=== PATIENT | female | born 1980 | race Two or more races ===

== ENCOUNTER 2017-02-04 17:04 | Emergency (ER) | payer OTHER ==
[~2017-02-04] VITALS: Ht 154.9 cm; Wt 64.5 kg
[2017-02-04 17:30] LABS: HEMATOCRIT 44.2 % (34.6-47.8); HEMOGLOBIN 14.9 g/dL (11.7-16.4); WHITE BLOOD COUNT 10.2 x10^3/uL (3.4-10)
[2017-02-04] MEDS ORDERED: SODIUM CHLORIDE FLUSH 10ML SYR IVF ONE (17:30)
[2017-02-04] MEDS ORDERED: SODIUM CHLORIDE 0.9% 1,000ML IVBOLUS ONE (17:30)
[2017-02-04 17:42] LABS: BLOOD UREA NITROGEN 11 mg/dL (7-18)
[2017-02-04 22:26] VITALS: BP 134/80
== END 2017-02-04 22:27 | disposition home or self-care (01) ==
LOC: ED 19:58
DX: O26.891 Other specified pregnancy related conditions, first trimester (principal); R10.32 Left lower quadrant pain; Z3A.12 12 weeks gestation of pregnancy
CPT/HCPCS: 36415; 76801; 80048; 81003; 82040; 84702; 85025; 86901; 96360; 99285; J7030

== ENCOUNTER 2017-02-15 19:32 | Emergency (ER) | payer MEDICAID ==
[~2017-02-15] VITALS: Ht 154.9 cm; Wt 65.8 kg
[2017-02-15] MEDS ORDERED: SODIUM CHLORIDE 0.9% 1,000ML IVBOLUS ONE (20:00)
[2017-02-15] MEDS ORDERED: SODIUM CHLORIDE FLUSH 10ML SYR IVF ONE (20:00)
[2017-02-15 20:08] LABS: HEMATOCRIT 42.2 % (34.6-47.8); HEMOGLOBIN 14.4 g/dL (11.7-16.4)
[2017-02-15 20:13] LABS: BLOOD UREA NITROGEN 11 mg/dL (7-18)
[2017-02-15 22:07] VITALS: BP 130/87
== END 2017-02-15 22:16 | disposition home or self-care (01) ==
LOC: MERGE 19:32 → ED 22:02
DX: O03.4 Incomplete spontaneous abortion without complication (principal); R10.2 Pelvic and perineal pain
CPT/HCPCS: 36415; 76801; 80048; 81003; 82040; 84702; 85025; 86901; 96360; 96361; 99285; J7030